=== PATIENT | male | born 1990 | race Caucasian/White ===

== ENCOUNTER → 2020-06-06 | Outpatient (CLI) | payer OTHER | END | disposition home or self-care (01) | LOC: OFIC 805 10:15 | PROVIDERS: ATTEND Otolaryngology | DX: J34.3 Hypertrophy of nasal turbinates (principal); J34.2 Deviated nasal septum; J02.8 Acute pharyngitis due to other specified organisms; R09.81 Nasal congestion ==

== ENCOUNTER 2020-11-16 11:24 | Outpatient (CLI) | payer OTHER | END 2020-11-16 11:29 | disposition home or self-care (01) | LOC: MRI 11:24 | PROVIDERS: ATTEND Orthopaedic Surgery | DX: M25.062 Hemarthrosis, left knee (principal) | CPT/HCPCS: 73721 ==

== ENCOUNTER 2020-12-03 11:49 | Day surgery (SDC) | payer OTHER | END 2020-12-03 22:50 | disposition home or self-care (01) | LOC: CIR.AMB 11:49 | PROVIDERS: ATTEND Orthopaedic Surgery | DX: M23.321 Other meniscus derangements, posterior horn of medial meniscus, right knee (principal); M22.01 Recurrent dislocation of patella, right knee; M65.861 Other synovitis and tenosynovitis, right lower leg; M22.41 Chondromalacia patellae, right knee; Z20.822 Contact with and (suspected) exposure to COVID-19 | CPT/HCPCS: 29889; 20920; 29873; 29876; C1776 ==